=== PATIENT | female | born 1935 | race Caucasian/White ===

== ENCOUNTER 2017-09-24 07:35 | Emergency (ER) | payer OTHER ==
[~2017-09-24] VITALS: Ht 162.6 cm; Wt 61.2 kg
[2017-09-24 08:23] LABS: CARBON DIOXIDE 25.6 mmol/L (21-32); CHLORIDE SERUM 101 mmol/L (98-107); CREATININE SERUM 1.9 mg/dL (0.6-1.0); GLUCOSE SERUM 90 mg/dL (74-106); SODIUM SERUM 134 mmol/L (136-145)
[2017-09-24 08:27] LABS: ALBUMIN 3.5 g/dL (3.4-5.0); ALKALINE PHOSPHATASE 76 U/L (46-116); ALT/SGPT 12 U/L (14-59); AST/SGOT 14 U/L (15-37); BILIRUBIN TOTAL 0.51 mg/dL (0.20-1.00); TOTAL PROTEIN, SERUM 6.8 g/dL (6.4-8.2)
[2017-09-24 08:30] LABS: BASOPHIL % 0.4 % (0-2); PLATELET COUNT 233 x10^3mcL (130-400)
[2017-09-24 08:31] LABS: microscopic required? YES; urine erythrocyte 1+ (NEGATIVE)
[2017-09-24 10:25] VITALS: BP 177/82
== END 2017-09-24 10:20 | disposition home or self-care (01) ==
LOC: ED 07:35
PROVIDERS: Emergency Medicine
DX: N39.0 Urinary tract infection, site not specified (principal); I16.0 Hypertensive urgency; R51 Headache; R53.1 Weakness
CPT/HCPCS: J0696; J3010; J7030; Q0092

== ENCOUNTER 2017-10-09 14:31 | Inpatient (IN) | payer OTHER ==
[~2017-10-09] VITALS: Ht 165.1 cm; Wt 65.3 kg
[2017-10-09 14:40] VITALS: Ht 165.1 cm; Wt 65.3 kg
[2017-10-09 15:54] LABS: UA SPECIFIC GRAVITY <=1.005 (1.005-1.035); microscopic required? YES; urine erythrocyte TRACE (NEGATIVE)
[2017-10-09 16:07] LABS: PLATELET COUNT 204 x10^3mcL (130-400); RED CELL DISTRIBUTION WIDTH 14.1 % (11.5-14.5)
[2017-10-09 16:30] LABS: BAND NEUTROPHIL 2 % (0-10); BASOPHIL 0 % (0-2); MONOCYTE 3 % (0-7); SEGMENTED NEUTROPHILS 90 % (37-75); rbc morphology (normal/abnorm) NORMAL (NORMAL)
[2017-10-09 16:39] LABS: ALBUMIN 3.4 g/dL (3.4-5.0); ALKALINE PHOSPHATASE 82 U/L (46-116); ALT/SGPT 10 U/L (14-59); AST/SGOT 8 U/L (15-37); BILIRUBIN TOTAL 0.6 mg/dL (0.20-1.00); CALCIUM 8.6 mg/dL (8.5-10.1); CHLORIDE SERUM 90 mmol/L (98-107); CREATININE SERUM 1.7 mg/dL (0.6-1.0); GLUCOSE SERUM 115 mg/dL (74-106); POTASSIUM SERUM 4.4 mmol/L (3.5-5.1); TOTAL PROTEIN, SERUM 6.7 g/dL (6.4-8.2)
[2017-10-09 16:40] LABS: SODIUM SERUM 124 mmol/L (136-145)
[2017-10-09 16:55] LABS: CK-MB 0.6 ng/mL (0-3.6)
[2017-10-09] MEDS ORDERED: BUPROPION HCL150 MG PO (16:56)
[2017-10-09] MEDS ORDERED: NITROFURANTOIN100 MG PO (16:56)
[2017-10-09] MEDS ORDERED: LIPI20 PO (16:56)
[2017-10-09] MEDS ORDERED: BUSPIRONE HCL5 MG PO (16:56)
[2017-10-09] MEDS ORDERED: TRA50 PO (16:56)
[2017-10-09] MEDS ORDERED: FUROSEMIDE20 MG PO (16:57)
[2017-10-09] MEDS ORDERED: CITALOPRAM HYDR20 M1 PO (16:57)
[2017-10-09] MEDS ORDERED: GOOD SENSE OMEP20 MG PO (16:57)
[2017-10-09] MEDS ORDERED: NOR5 PO (16:57)
[2017-10-09] MEDS ORDERED: DICLOFENAC SODI75 MG PO (16:57)
[2017-10-09] MEDS ORDERED: LOSARTAN POTASS50 M1 PO (16:58)
[2017-10-09 17:45] LABS: T3 TOTAL 0.49 ng/mL
[2017-10-09 17:46] LABS: FREE T4 1.15 ng/dL (0.76-1.46); FREE THYROXINE INDEX 2.9 ug/dL (1.4-4.5); T4(THYROXINE) 8.3 ug/dL (4.7-13.3)
[2017-10-09 17:54] VITALS: BP 124/88
[2017-10-09 18:34] LABS: CHOLESTEROL/HDL RATIO 2.7; MAGNESIUM 1.8 mg/dL (1.8-2.4)
[2017-10-09 20:28] VITALS: BP 151/49
[2017-10-09 22:37] LABS: CARBON DIOXIDE 21.1 mmol/L (21-32); CHLORIDE SERUM 93 mmol/L (98-107); CREATININE SERUM 1.7 mg/dL (0.6-1.0); GLUCOSE SERUM 121 mg/dL (74-106); SODIUM SERUM 125 mmol/L (136-145)
[2017-10-09 22:38] LABS: IRON 16 ug/dL (50-170); TOTAL IRON BINDING CAPACITY 220 ug/dL (250-450)
[2017-10-09 22:38] LABS: RED BLOOD CELLS 3.09 M/mm3 (4.10-5.10)
[2017-10-10 05:27] VITALS: BP 117/58
[2017-10-10 07:00] LABS: PLATELET COUNT 158 x10^3mcL (130-400); RED CELL DISTRIBUTION WIDTH 14.5 % (11.5-14.5)
[2017-10-10 07:25] LABS: CARBON DIOXIDE 20.1 mmol/L (21-32); CHLORIDE SERUM 102 mmol/L (98-107); CREATININE SERUM 1.7 mg/dL (0.6-1.0); GLUCOSE SERUM 91 mg/dL (74-106); POTASSIUM SERUM 4.4 mmol/L (3.5-5.1); SODIUM SERUM 133 mmol/L (136-145)
[2017-10-10 09:15] VITALS: BP 116/43
[2017-10-10 10:11] LABS: BAND NEUTROPHIL 11 % (0-10); BASOPHIL 0 % (0-2); MONOCYTE 3 % (0-7); SEGMENTED NEUTROPHILS 74 % (37-75)
[2017-10-10 10:12] LABS: PLATELET MORPHOLOGY PLATELETS NORMAL; rbc morphology (normal/abnorm) NORMAL (NORMAL)
[2017-10-10 13:04] VITALS: BP 156/49
[2017-10-10 17:08] VITALS: BP 154/51
[2017-10-10 20:11] VITALS: BP 150/63
[2017-10-11 05:12] VITALS: BP 171/57
[2017-10-11 05:21] VITALS: BP 177/56
[2017-10-11 06:43] LABS: BASOPHIL % 0.2 % (0-2); PLATELET COUNT 168 x10^3mcL (130-400)
[2017-10-11 06:47] LABS: RED CELL DISTRIBUTION WIDTH 14.6 % (11.5-14.5)
[2017-10-11 06:59] LABS: CALCIUM 8.2 mg/dL (8.5-10.1); CARBON DIOXIDE 19.5 mmol/L (21-32); CHLORIDE SERUM 103 mmol/L (98-107); CREATININE SERUM 1.7 mg/dL (0.6-1.0); GLUCOSE SERUM 89 mg/dL (74-106); MAGNESIUM 1.8 mg/dL (1.8-2.4); PHOSPHOROUS 3.4 mg/dL (2.5-4.9); POTASSIUM SERUM 4.3 mmol/L (3.5-5.1); SODIUM SERUM 135 mmol/L (136-145)
[2017-10-11 08:45] VITALS: BP 170/50
[2017-10-11 13:34] VITALS: BP 165/55
[2017-10-11 17:12] VITALS: BP 163/54
[2017-10-11 19:20] VITALS: BP 168/57
[2017-10-12 00:14] VITALS: BP 144/52
[2017-10-12 06:24] VITALS: BP 172/61
[2017-10-12 06:57] LABS: BASOPHIL % 0.3 % (0-2); PLATELET COUNT 221 x10^3mcL (130-400); RED CELL DISTRIBUTION WIDTH 14.4 % (11.5-14.5)
[2017-10-12 07:04] LABS: CALCIUM 8.5 mg/dL (8.5-10.1); CARBON DIOXIDE 19.7 mmol/L (21-32); CHLORIDE SERUM 104 mmol/L (98-107); CREATININE SERUM 1.6 mg/dL (0.6-1.0); GLUCOSE SERUM 107 mg/dL (74-106); POTASSIUM SERUM 4.5 mmol/L (3.5-5.1); SODIUM SERUM 137 mmol/L (136-145)
[2017-10-12 09:27] VITALS: BP 151/54
[2017-10-12 12:47] VITALS: BP 136/49
[2017-10-12 17:16] VITALS: BP 157/60
[2017-10-12 20:56] VITALS: BP 156/63
[2017-10-13 05:41] VITALS: BP 155/68
[2017-10-13 06:47] LABS: BASOPHIL % 1.2 % (0-2); PLATELET COUNT 225 x10^3mcL (130-400); RED CELL DISTRIBUTION WIDTH 14.4 % (11.5-14.5)
[2017-10-13 07:02] LABS: CALCIUM 8.3 mg/dL (8.5-10.1); CHLORIDE SERUM 102 mmol/L (98-107); CREATININE SERUM 1.4 mg/dL (0.6-1.0); GLUCOSE SERUM 94 mg/dL (74-106); POTASSIUM SERUM 4.9 mmol/L (3.5-5.1); SODIUM SERUM 131 mmol/L (136-145)
[2017-10-13 07:43] VITALS: BP 158/61
[2017-10-13] MEDS ORDERED: COZ50 PO (09:33)
[2017-10-13] MEDS ORDERED: NOR5 PO (09:33)
[2017-10-13] MEDS ORDERED: KEFLEX500 M1 PO (09:35)
[2017-10-13 10:23] VITALS: BP 158/61
[2017-10-13 10:46] VITALS: BP 150/77
== END 2017-10-13 11:20 | disposition home or self-care (01) | DRG 871 ==
LOC: ED 14:31 → MU 16:48 → DU 16:48 → MU 17:35 → DU 18:48
PROVIDERS: Emergency Medicine; Family Medicine; Internal Medicine
DX: A41.9 Sepsis, unspecified organism (principal); N17.0 Acute kidney failure with tubular necrosis; N39.0 Urinary tract infection, site not specified; E87.1 Hypo-osmolality and hyponatremia; E87.2 Acidosis; R65.20 Severe sepsis without septic shock; R33.9 Retention of urine, unspecified; R32 Unspecified urinary incontinence; I10 Essential (primary) hypertension; D63.8 Anemia in other chronic diseases classified elsewhere; E03.9 Hypothyroidism, unspecified; E78.5 Hyperlipidemia, unspecified; Z96.652 Presence of left artificial knee joint; Z68.28 Body mass index [BMI] 28.0-28.9, adult; Z91.14 Patient's other noncompliance with medication regimen
CPT/HCPCS: 82962; 83880; 84439; 97110-GP; 97116-GP; 97530-GP; J0696; J7030; Q0092

== ENCOUNTER 2018-05-23 20:31 | Inpatient (IN) | payer OTHER ==
[~2018-05-23] VITALS: Ht 157.5 cm; Wt 92.6 kg
[~2018-05-23 20:31] MED LIST: BUPROPION HCL150 MG PO; BUSPIRONE HCL5 MG PO; CITALOPRAM HYDR20 M1 PO; COZ50 PO; DICLOFENAC SODI75 MG PO; FUROSEMIDE20 MG PO; GOOD SENSE OMEP20 MG PO; KEFLEX500 M1 PO; LIPI20 PO; LOSARTAN POTASS50 M1 PO; NITROFURANTOIN100 MG PO; NOR5 PO; TRA50 PO
--- NOTE | 2018-05-23 20:40 | NUR ---
PT. BIB AMBULACE FOR SOB SINCE TODAY. PER [facility], PT. WAS RECENTLY IN REHAB FACILITY FOR PR AND PNEUMONIA FOR APRX 1MONTH AND D/C ONE WEEK AGO. ON ARRIVAL [facility] REPROTS OXYGEN SAT AT 86% ON 2L AND PT. WAS WHEEZING. WAS GIVEN TWO BREATHING TREATMENTS IN TRANSPORT. PT. AWAKE AND ALERT. IN MODERATE DYSTRESS WITH TACYPNEA AND DYSPNEA. OXYGEN SAT AT 90% ON 2L OXYGEN. DR. MOORE AT BEDSIDE FOR MSE.
--- NOTE | 2018-05-23 20:50 | NUR ---
RT AND LAB AT BEDSIDE.
--- NOTE | 2018-05-23 21:00 | NUR ---
RT AT BEDSIDE.
[2018-05-23 21:01] LABS: BASOPHIL % 0.7 % (0-2); PLATELET COUNT 247 x10^3mcL (130-400)
[2018-05-23 21:02] LABS: RED CELL DISTRIBUTION WIDTH 19.8 % (11.5-14.5)
[2018-05-23 21:23] LABS: CALCIUM 8.6 mg/dL (8.5-10.1); CARBON DIOXIDE 25.7 mmol/L (21-32); CHLORIDE SERUM 103 mmol/L (98-107); CREATININE SERUM 1.8 mg/dL (0.6-1.0); GLUCOSE SERUM 114 mg/dL (74-106); POTASSIUM SERUM 3.4 mmol/L (3.5-5.1); SODIUM SERUM 138 mmol/L (136-145)
[2018-05-23 21:24] LABS: FREE T4 1.8 ng/dL (0.76-1.46); FREE THYROXINE INDEX 4.9 ug/dL (1.4-4.5); T4(THYROXINE) 12.9 ug/dL (4.7-13.3)
[2018-05-23 21:27] LABS: T3 TOTAL 0.83 ng/mL
[2018-05-23 21:37] LABS: ALBUMIN 3.4 g/dL (3.4-5.0); ALKALINE PHOSPHATASE 89 U/L (46-116); ALT/SGPT 17 U/L (14-59); AST/SGOT 17 U/L (15-37); BILIRUBIN TOTAL 0.72 mg/dL (0.20-1.00); C REACTIVE PROTEIN 3.7 mg/dL (<=0.9); TOTAL PROTEIN, SERUM 7.1 g/dL (6.4-8.2)
[2018-05-23 21:41] LABS: ERYTHROCYTE SED RATE 33 mm/hr (0-30)
[2018-05-23 21:43] LABS: CK-MB 1.3 ng/mL (0-3.6)
--- NOTE | 2018-05-23 21:45 | NUR ---
DR. MOORE AT BEDSIDE TO DISCUSS RESULTS AND PLAN OF CARE WITH PATIENT AND FAMILY.
--- NOTE | 2018-05-23 22:00 | NUR ---
PT TOLERATNIG BIPAP WELL. REPORTS SHE IS FEELING BETTER THAN WHEN SHE FIRST ARRIVED TO ED. BREATHING EQUAL AND ULABORED. PT. RESTING ON GURNEY, NOT IN ANY APPARENT DISTRESS. CALL LIGHT IN REACH. FAMILY AT BEDSIDE. WILL CONTINUE TO MONITOR.
--- NOTE | 2018-05-23 22:15 | NUR ---
PT. PLACED ON BPAP AT 12/6 BACKUP AT 12 AND ON 100%. PT. TOLERATNIG WELL.
[2018-05-23 22:20] LABS: MAGNESIUM 1.8 mg/dL (1.8-2.4); PHOSPHOROUS 2.9 mg/dL (2.5-4.9)
[2018-05-23 22:28] LABS: CHOLESTEROL/HDL RATIO 2.7
[2018-05-23] MEDS ORDERED: FLO4 (22:59)
[2018-05-23] MEDS ORDERED: PANTOPRAZOLE SO40 M1 (23:00)
[2018-05-23] MEDS ORDERED: CARAFATE1 GM/10 ML (23:00)
[2018-05-23] MEDS ORDERED: TOPROL XL25 MG (23:01)
[2018-05-23] MEDS ORDERED: PLA75 (23:02)
[2018-05-23] MEDS ORDERED: LEVOTHYROXIN0.125 M2 (23:02)
[2018-05-23 23:09] LABS: UA SPECIFIC GRAVITY 1.015 (1.005-1.035); microscopic required? YES; urine erythrocyte TRACE (NEGATIVE)
[2018-05-23 23:15] LABS: AMPHETAMINE QUAL UR NONE DETECTED (See below)
--- NOTE | 2018-05-23 23:25 | NUR ---
DR. MEJIA AT BEDSIDE TO DISCUSS PLAN OF WITH PATIENT AND DAUGHTER.
--- NOTE | 2018-05-24 00:08 | NUR ---
REPORT GIVEN TO JOHNNY BURT FOR FURTHER CARE OF PATIENT. ALL QUESTIONS AND CONCERS ADDRESSED. ALSO INFORMED RT OF TRANSFER
--- NOTE | 2018-05-24 01:00 | NUR ---
PT ARRIVED FROM ED ACCOMPANIED BY NURSE AND RT. PT CC IS SOB. PT ARRIVED WITH BIPAP IN PLACE RATE OF 12 I/E OF 6 AND FIO2 OF 70%. PT TOLERATED WELL. WHILE ADJUSTING IN BED, BIPAP REMOVED AND PT O2 SAT 95% ON ROOM AIR. PT PLACED ON 3L O2 NC AND MONITORED; PT TOLERATED NC WELL WITH O2 SAT AT 97%. PT DENIES SOB. PT IS AWAKE AND ORIENDTED X4 PRIMARILY MAORI SPEAKING BUT ABLE TO LET NEEDS BE KNOWN. PT DENIES CP OR PRESSURE. PT REMAINS INCONTINENT OF BLADDER. PT NOTED TO HAVE +4 EDMEA TO BILAT FEET. PT REMAINS CALM AND COOPERATIVE AT THIS TIME. PT DENIES PAIN OR DISCOMFORT. NO SIGNS OF DISTRESS. WILL CONTINUE TO MONITOR.
--- NOTE | 2018-05-24 01:05 | NUR ---
PT TRANSFERED TO ICU AT THIS TIME ON BIPAP. PT ACCOMPANIED BY ME RN, EMT CYNTHIA, AND RT GIO. PT TRANSFERED VIA GURNEY. PT IS AWAKE AND ALERT, NAD AT THIS TIME. BREATHING EVEN AND UNLABORED. PT ACCOMPANIED BY FAMILY MEMBER WHO VERBALIZED UNDERSTANDING OF PLAN OF CARE. CARMEL STAFFORD IN ICU TO ASSUME FURTHER CARE OF PT.
[2018-05-24 01:12] VITALS: BP 161/82
--- NOTE | 2018-05-24 02:00 | NUR ---
PT BP ELEVATED AT THIS TIME. 178/[address] MEJIA NOTIFIED. WILL CONTINUE TO MONITOR.
--- NOTE | 2018-05-24 02:38 | NUR ---
APRESOLINE 10MG IVP ORDERED, AWAITING VERIFICATION. WILL CARRY OUT ORDERS.
[2018-05-24 02:40] VITALS: BP 161/82
--- NOTE | 2018-05-24 02:56 | NUR ---
IV APRESOLINE GIVEN ORDERED. PT DENIES PAIN OR DISCOMFORT. WILL CONTINUE TO MONTIOR.
--- NOTE | 2018-05-24 03:42 | NUR ---
PT HR ELEVATED TO 160'S, DR. MEJIA MADE AWARE AND AT BEDSIDE TO SEE PT. PT APPEARS TO BE ANXIOUS, AND FRANTIC WITH BIPAP ON. ONE TIME DOSE OF ATIVAN 1MG IVP ORDERED.
--- NOTE | 2018-05-24 04:00 | NUR ---
PT HR IN 140'S DR. MEJIA ORDERED LOPRESSOR 5MG IVP. MED GIVEN AND HR AT THIS TIME DROPPED TO THE 80'S. PT REMAINS IN BED AT THIS TIME RESTING AND CALM. NO SIGNS OF DISTRESS. WILL CONTINUE TO MONITOR.
--- NOTE | 2018-05-24 05:09 | NUR ---
PT REMAINS IN BED AT THIS TIME RESTING AND CALM. PT REMAINS ON BIPAP AT THIS TIME RATE OF 12 AND FIO2 OF 30%. PT BP 121/56 WITH HR 82 O2 SAT 97% RR 24. NO SIGNS OF PAIN OR DISCOMFORT. NO SIGNS OF DISTRESS. [facility].
[2018-05-24 05:25] LABS: PLATELET COUNT 193 x10^3mcL (130-400)
[2018-05-24 05:30] LABS: BASOPHIL % 0 % (0-2); RED CELL DISTRIBUTION WIDTH 19.8 % (11.5-14.5)
[2018-05-24 05:39] LABS: CALCIUM 8.4 mg/dL (8.5-10.1); CARBON DIOXIDE 21.6 mmol/L (21-32); CHLORIDE SERUM 104 mmol/L (98-107); CREATININE SERUM 1.9 mg/dL (0.6-1.0); GLUCOSE SERUM 207 mg/dL (74-106); MAGNESIUM 1.6 mg/dL (1.8-2.4); PHOSPHOROUS 3.7 mg/dL (2.5-4.9); POTASSIUM SERUM 3.4 mmol/L (3.5-5.1); SODIUM SERUM 141 mmol/L (136-145)
[2018-05-24 05:59] VITALS: BP 136/63
--- NOTE | 2018-05-24 06:06 | NUR ---
PT MG 1.6, K 3.4, AND TROP 0.126; DR. MEJIA AND DR. MATHUR MADE AWARE.
--- NOTE | 2018-05-24 06:43 | NUR ---
PT REMAINS IN BED AT THIS TIME WITH BIPAP IN PLACE RATE OF 12 AND FIO2 OF 30% AT THIS TIME. PT TOLERATING WELL. PT DROWSY BUT AROUSABLE AT THIS TIME. NO SIGNS OF SOB. RESPIRATIONS EVEN AND UNLABORED. NO SIGNS OF CP OR PRESSURE. PT REMAINS INCONTINENT DURING THE SHIFT. PT REPOSITIONED Q2 HOURS WHILE ASLEEP. ALL PT NEEDS MET. NO SIGNS OF DISTRESS. WILL ENDORSE TO DAY NURSE.
--- NOTE | 2018-05-24 07:15 | NUR ---
REPORT GIVEN BY CARMEL TURNER. ALL QUESTIONS ANSWERED.
[2018-05-24 07:20] VITALS: BP 145/66
--- NOTE | 2018-05-24 07:30 | NUR ---
PATIENT IS IN BED SLEEPING, BED IS TO THE LOWEST POSITION. PATIENT IS ON BIPAP. RATE OF 12 AND FI02 OF 30%. PATIENT IS BREATHING ADEQUATELY AND THERE ARE NO SIGNS OF RESPIRATORY DISTRESS. SAFEMAKER IN PLACE, NSR. ABD IS ROUND AND SOFT. NO BM PER BIOSTATISTICS DIRECTOR. R HAND IV IS INTACT WITH NS INFUSING AT 10 ML/HR. PATIENT IS CALM AND COOPERATIVE AND ABLE TO FOLLOW SIMPLE COMMANDS. PRESSURE POINTS ARE OFF LOADED WITH PILLOWS. CALL LIGHT WITHIN REACH. WILL CONTINUE TO MONITOR.
[2018-05-24 08:50] VITALS: Ht 157.5 cm; Wt 92.6 kg
--- NOTE | 2018-05-24 10:04 | NUR ---
DR. MAGANA, RESIDENTS, BUILDING ENERGY RETROFIT TECHNICIAN AND PRIMARY RN AT BEDSIDE FOR MORNING ROUNDS. PLAN OF CARE DISCUSSED. WILL CONT TO MONITOR.
--- NOTE | 2018-05-24 11:29 | NUR ---
PER ECHO CARDIOGRAM TECH, EJECTION FRACTION OF PT 45% AND RSVP: 58. TECH WILL CALL DR. VENEGAS.
[2018-05-24 11:45] VITALS: BP 150/60
--- NOTE | 2018-05-24 12:11 | NUR ---
RESENDEZ CATHETER APPLIED,PER DR STEIN. PATIENT STABLE, WILL CONTINUE TO MONITOR.
--- NOTE | 2018-05-24 14:02 | NUR ---
DR. SCHMIDT IS AT BEDSIDE DISCUSSING PLAN OF CARE WITH DAUGHTER. DR. SCHMIDT RECCOMMENDS CARDIAC DIET AND [address] SCHMIDT ALSO STATES THAT PATIENT IS STABLE TO GO UPSTAIRS. PATIENT STABLE, WILL CONTINUE TO MONITOR.
--- NOTE | 2018-05-24 15:15 | NUR ---
REPORT GIVEN TO CARMEL BROWNING, FOR TRANSFER. ALL QUESTIONS AND CONCERNS ADDRESSED.
--- NOTE | 2018-05-24 16:00 | NUR ---
RECIEVED PT FROM ICU. PT IS LAYING DOWN AND LOOKS TO BE IN NO ACUTE DISTRESS AT THIS TIME. VITAL SIGNS, BP: 148/65, HR: 95, RR: 20, 02: 94%, TEMP: 97.2, PT DENIES ANY PAIN AT THIS TIME. 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 TELE MONITOR 6 SHOWS NSR. BOWEL SOUNDS ACTIVE X4 QUADRANTS. RADIAL PULSES MODERATE, PEDAL PULSES WEAK. TRACE SWELLING TO RIGHT LOWER EXTREMITY, +2 PITTING EDEMA TO LEFT LOWER EXTREMITY. PT ON AIR MATTRESS. SKIN TEAR TO RIGHT BUTTOCKS, PICTURE IN CHART, OPTIFOAM PRESENT. IV SITE TO LEFT HAND LOOKS PATENT WITH NO SIGNS OF ERYTHEMA OR SWELLING, IV FLUIDS INFUSING. FAMILY MEMBER AT BEDSIDE. ORIENTED PT TO ROOM, BED IN LOWEST POSITION. CALL LIGHT WITHIN REACH. WILL CONTINUE TO MONTIOR.
--- NOTE | 2018-05-24 18:37 | NUR ---
PT LAYING DOWN IN BED WITH HOB UP. RESPIRATIONS EVEN AND UNLABORED ON 3L OXYMIZER. PT LOOKS TO BE IN NO ACUTE DISTRESS AT THIS TIME AND DENIES ANY PAIN. IV SITE IS PATENT WITH NO SIGNS OF ERYTHEMA OR SWELLING, IV FLUIDS INFUSING. RESENDEZ CATHETER EMPTYING CLEAR YELLOW URINE. RESENDEZ CARE COMPLETED. FAMILY MEMBER AT BEDSIDE. BED IN LOWEST POSITION. CALL LIGHT WITHIN REACH. WILL CONTINUE TO MONITOR.
--- NOTE | 2018-05-24 19:14 | NUR ---
RECEIVED PT FROM DAY SHIFT RN. AAO. DENIES HEADACHE/DIZZINESS. PT ON 3L OXYMIZER, DENIES SOB. TOLD PT AND FAMILY AT BEDSIDE TO CALL RN IF FEELING SOB, PT VERBALIZED UNDERSTANDING. DENIES CP/CHEST PRESSURE. TELE #6 SHOWING NSR, HR 85. DENIES N/V, DENIES ABD PAIN. IV TO L HAND CDI, NO SIGNS OF ERYTHEMA OR SWELLING, IVF INFUSING WELL. CALL LIGHT WITHIN REACH. WILL CONTINUE TO MONITOR.
[2018-05-24 20:04] VITALS: BP 142/63
--- NOTE | 2018-05-25 00:14 | NUR ---
PT REQUESTING SLEEPING MED, DR. JUAN ARCINIEGA.
--- NOTE | 2018-05-25 00:52 | NUR ---
RT CALLED, PT C/O DRY NARES, PER RT, WILL PLACE PT ON NC WITH HUMIDIFIER TO REDUCE IRRITATION.
--- NOTE | 2018-05-25 01:46 | NUR ---
PT RESTING IN BED WITH EYES CLOSED. BREATHING E/U ON 5L OXYGEN NC. NO SIGNS OF PAIN NOTED. WILL CONTINUE TO MONITOR.
[2018-05-25 05:10] VITALS: BP 132/68
--- NOTE | 2018-05-25 06:29 | NUR ---
PT HAD RESTFUL NIGHT. REMAINS ON 5L OXYGEN NC. NO S/S ACUTE DISTRESS. DENIES PAIN. TOLERATED MEDICATION ADMINISTRATION WELL. NO CHANGES OVERNIGHT. ALL NEEDS MET AND ATTENDED TO. CALL LIGHT WITHIN REACH. WILL ENDORSE CARE TO ONCOMING SHIFT NURSE.
[2018-05-25 06:30] LABS: CALCIUM 8.7 mg/dL (8.5-10.1); CARBON DIOXIDE 24.4 mmol/L (21-32); CHLORIDE SERUM 104 mmol/L (98-107); CREATININE SERUM 2.1 mg/dL (0.6-1.0); GLUCOSE SERUM 159 mg/dL (74-106); MAGNESIUM 2.1 mg/dL (1.8-2.4); POTASSIUM SERUM 4.6 mmol/L (3.5-5.1); SODIUM SERUM 139 mmol/L (136-145)
[2018-05-25 07:01] LABS: PLATELET COUNT 196 x10^3mcL (130-400)
[2018-05-25 07:03] LABS: BASOPHIL % 0 % (0-2); RED CELL DISTRIBUTION WIDTH 19.4 % (11.5-14.5)
--- NOTE | 2018-05-25 07:15 | NUR ---
RECIEVED PT FROM NIGHT NURSE. PT IS LAYING DOWN IN BED RESTING WITH EYES CLOSED. PT LOOKS TO BE IN NO ACUTE DISTRESS AT THIS TIME. RESPRIATIONS EVEN AND UNLABORED ON 5L NC WITH HUMIDIFIER. TELE MONITOR 6 SHOWING NORMAL SINUS RHYTHM. IV SITE LOOKS PATENT WITH NO SIGNS OF ERYTHEMA OR SWELLING. BED IN LOWEST POSITION, CALL LIGHT WITHIN REACH. WILL CONTINUE TO MONITOR.
[2018-05-25 07:52] VITALS: BP 149/76
[2018-05-25 12:08] VITALS: BP 147/70
--- NOTE | 2018-05-25 13:00 | NUR ---
PT LAYING DOWN IN BED WITH HOB UP. PT LOOKS TO BE IN NO ACUTE DISTRESS AT THIS TIME AND DENIES ANY PAIN. REPSIRATIONS EVEN AND UNLABORED ON 5L NC WITH HUMIDIFIER. FAMILY MEMBER AT BEDSIDE. IV SITE IS PATENT WITH NO SIGNS OF ERYTHEMA OR SWELLING. BED IN LOWEST POSITION. CALL LIGHT WITHIN REACH. WILL CONTINUE TO MONITOR.
--- NOTE | 2018-05-25 14:00 | NUR ---
PT IS COMPLAINING OF DRY EYES. WILL MEDICATE ACCORDING TO EMAR.
[2018-05-25 15:54] VITALS: BP 134/75
--- NOTE | 2018-05-25 17:30 | NUR ---
PT IS LAYING DOWN IN BED WITH HOB UP. RESPIRATIONS EVEN AND UNLABORED ON 5L NC WITH HUMIDIFICATION. PT LOOKS TO BE IN NO ACUTE DISTRESS AT THIS TIME AND DENIES ANY PAIN. FAMILY MEMBER AT BEDSIDE. RESENDEZ CARE PREFORMED. BED IN LOWEST POSITION. CALL LIGHT WITHIN REACH. WILL ENDORSE TO ONCOMING SHIFT.
--- NOTE | 2018-05-25 19:55 | NUR ---
AOX3. TELE #6, SR. LUNGS CLEAR ON NC @ 4L, DENIES SOB. PULSES PALPABLE. EDMEA TO RLE AND LEFT FOOT. BOWEL SOUNDS ACTIVE. RESENDEZ CATHETER DRAINING YELLOW URINE. ON AIR MATTRESS. DRESSING TO BUTTOCKS, CDI. DENIES PAIN. IV TO LH, PATENT AND INFUSING. BED IN LOWEST POSITION, 2 SIDE RAILS UP, CALL LIGHT IN REACH. INSTRUCTED TO CALL FOR ASSISTANCE.
[2018-05-25 20:33] VITALS: BP 121/47
--- NOTE | 2018-05-26 02:27 | NUR ---
RESTING IN BED WITH EYES CLOSED. BREATHING EVEN AND UNLABORED. NO ACUTE DISTRESS NOTED. WILL CONTINUE TO MONITOR.
[2018-05-26 05:00] VITALS: BP 126/54
--- NOTE | 2018-05-26 07:05 | NUR ---
NO ACUTE DISTRESS NOTED. ENDORSED TO FELICIA BURT.
[2018-05-26 07:17] LABS: PLATELET COUNT 192 x10^3mcL (130-400)
[2018-05-26 07:18] LABS: RED CELL DISTRIBUTION WIDTH 19.1 % (11.5-14.5)
[2018-05-26 07:30] LABS: CALCIUM 8.4 mg/dL (8.5-10.1); CARBON DIOXIDE 25.2 mmol/L (21-32); CHLORIDE SERUM 104 mmol/L (98-107); CREATININE SERUM 2.6 mg/dL (0.6-1.0); GLUCOSE SERUM 141 mg/dL (74-106); POTASSIUM SERUM 4.7 mmol/L (3.5-5.1); SODIUM SERUM 139 mmol/L (136-145)
--- NOTE | 2018-05-26 10:24 | NUR ---
AT 0710 - RECEIVED PATIENT FROM NIGHT NURSE. SLEEPING. RESPIRATIONS REGULAR. MONITOR SHOWING SINUS RHYHTM WITH PAC'S; RATE 70'S. IV INFUSING NS AT 10 ML/HR. RESENDEZ CATHETER DRAINING PALE YELLOW URINE. AT 0745 - RECEIVED CALL FROM LAB WITH BUN 64. CR 2.6 COPY OF LAB REPORT WITH HIGHLIGHTED RESULTS GIVNE TO DR GRANADOS IN CONFERENCE. AT 0810 - PATIENT AWAKE, ALERT AND APPEARS ORIENTED. DAUGHTER NOW AT BEDSIDE. PATIENT REPOSITIONED . SAT UP IN BED FOR BREAKFAST. PATIENT C/O GENERALZIED ITCHINESS AND SOME FACIAL REDDNESS. AT 0900 - HAS EATEN BREAKFAST. AT 0910 - RELEASE OF INFORMATION FORM SIGNED BY PATIENT FOR REQUEST OF RECORDS FROM [facility] AND [facility]. PATIENT RESTING QUIETLY. DAUGHTER AT BEDSIDE.
[2018-05-26 10:32] VITALS: BP 146/63
--- NOTE | 2018-05-26 11:18 | NUR ---
C/O ITCHY EYES. FAMILY REQUESTING EYE DROPS. INSTILLED ARTIFICIAL TEARS OU PER EMAR.
--- NOTE | 2018-05-26 12:31 | NUR ---
PATIENT HAS AMBULATED WITH PHYSICAL THERAPY. HAD BM IN BATHROOM. NOW SITTING ON SIDE OF BED FOR LUNCH. DAUGHTER AT BEDSIDE AND INVLOVED WITH CARE.
[2018-05-26 13:58] VITALS: BP 124/49
[2018-05-26 14:05] LABS: BAND NEUTROPHIL 0 % (0-10); BASOPHIL 0 % (0-2); MONOCYTE 2 % (0-7); SEGMENTED NEUTROPHILS 98 % (37-75)
[2018-05-26 14:06] LABS: PLATELET MORPHOLOGY PLATELETS DECREASED; burr cell (echinocyte) 1+; ovalocyte/elliptocyte 1+; rbc morphology (normal/abnorm) ABNORMAL (NORMAL)
--- NOTE | 2018-05-26 14:42 | NUR ---
AT 1410 - SEEN BY DR SCHMIDT. SPOKE WITH DAUGHTERS. THEY WOULD LIKE TO CONSIDER HOSPICE FOR PATIENT. FAMILY MENTIONED TO DR ABOUT PATIENT'S FACIAL REDDNESS EARLIER TODAY. WOULD LIKE STAFF TO OBSERVE PATIENT FOR POSSIBLE DRUG REACTION. AKOSUA KIMBROUGH IN PROGRESS AT THIS TIME. AT 1420 SPOKE WITH LEIGHANN FROM CASE MANAGEMENT. SHE WILL COME TO SEE FAMILY .
--- NOTE | 2018-05-26 15:10 | NUR ---
PHYSICAL THERAPY DAILY NOTES CO-SIGN All documentation done by the Layout Inspector for 05/26/18 has been reviewed. I agree with the documentation. Reviewed/Co-Signed by: Laisha Dominguez PT Documentation Done by:DANIEL TORRES [facility]
--- NOTE | 2018-05-26 16:58 | NUR ---
PT WAS SEEN FOR DYSPHAGIA. PT WAS ABLE TO SAFELY SWALLOW PUREE DIET WITH THIN LIQUID. PT HAD MILD DIFFICULTY WITH MASTICATION SKILLS FOR MS DIET. RECOMMENDATION PUREE DIET WITH THIN LIQUID.
--- NOTE | 2018-05-26 17:51 | NUR ---
PATIENT HAS HAD SWALLOW EVAL. SPEECH THERAPIST RECOMMENDS PURREED DIET. REGULAR LIQUIDS. AT THIS TIME, HOSPICE NURSE AT BEDSIDE SPEAKIGN WITH PATIENT'S DAUGHTER.
[2018-05-26 17:56] VITALS: BP 127/47
--- NOTE | 2018-05-26 18:29 | NUR ---
PLAN IS FOR PATIENT TO GO HOME ON HOSPICE, SOMETIME THIS WEEKEND, ONCE ALL THE EQUIPMENT IS SET UP AT HOME. PATIENT IS AWAKE, ALERT. RESTING QUIETLY. VSS. AFEBRILE. IV REMAINS AT 10ML/HR. URINE OUTPUT 800 ML THIS SHIFT. PATIENT HAS POOR APPETTIE BUT IS TAKING PO FLUIDS AND SMALL AMOUNTS OF FOOD. FAMILY REMAINS WITH PATIENT AND IS ATTENTIVE TO HER NEEDS. WILL ENDORSE CARE TO NIGHT NURSE.
--- NOTE | 2018-05-26 19:15 | NUR ---
RECIEVED PATIENT AT START OF SHIFT A/O X4. NO SOB NOTED ON 3L NC AND NO COMPLAINT OF PAIN. LUNGS DIMINISHED BILATERALLY. ON TELE NUMBER 6 NSR. TRACE EDEMA NOTED TO BLE. RESENDEZ DRAINING CLEAR YELLOW URINE. OPTIFOAM NOTED TO BUTTOX. IV PATENT AND INTACT. BED LOCKED AND IN LOWEST POSITION. CALL LIGHT AND BEDSIDE TABLE WITHIN REACH. WILL CONTINUE TO MONITOR.
[2018-05-26 20:58] VITALS: BP 137/57
--- NOTE | 2018-05-26 21:45 | NUR ---
PATIENT REQUESTED TO HAVE BIPAP MACHINE REMOVED BECAUSE SHE SAID IT WAS UNCOMFORTABLE AND SHE DIDNT NEED IT. PATIENT PLACED ON 3L NC INSTEAD. NO SOB NOTED. PATIENT ALSO REQUESTED AMBIEN TO HELP HER SLEEP, ADMINISTERED PER EMAR. REPOSITIONED TO RIGHT SIDE. WILL CONTINUE TO MONITOR.
--- NOTE | 2018-05-27 01:00 | NUR ---
PATIENT'S EYES ARE CLOSED, BREATHS EVEN AND REGULAR. NO DISTRESS NOTED. WILL CONTINUE TO MONITOR.
[2018-05-27 05:44] VITALS: BP 139/70
--- NOTE | 2018-05-27 07:45 | NUR ---
AT 0710 - RECEIVED PATIENT FROM NIGHT NURSE. SLEEPING. RESPIRATIONS REGULAR. MONITOR SHOWING SINUS RHYTHM WITH PAC'S; RATE 70'S. IV AT 10 ML/HR NS. RESENDEZ CATHETER DRAINING PALE YELLOW URINE.
--- NOTE | 2018-05-27 08:06 | NUR ---
PATIENT NOW AWAKE, ALERT AND APPEARS ORIETNED. SAT UP IN BED AND ASSISTED WITH BREAKFAST.
[2018-05-27 09:08] VITALS: BP 139/70
[2018-05-27 09:40] VITALS: BP 138/55
--- NOTE | 2018-05-27 10:28 | NUR ---
AT 0900 - PATIENT USED BEDSIDE COMODE FOR BM. LOOSE STOOL. RETURNED TO BED AND MADE COMFORTABLE. AT 0920 - IV RESITED IN RFA. IV CATHTER FROM R WRIST REMOVED INTACT. DAUGHTER WITH PATIENT AND ATTENTIVE TO CARE.
--- NOTE | 2018-05-27 13:07 | NUR ---
PATIENT HAS BEEN UP/AMBULATED WITH PHYSICAL THERAPY. NOW SITTING UP EATING LUNCH.
[2018-05-27 13:43] VITALS: BP 122/51
--- NOTE | 2018-05-27 16:13 | NUR ---
APPLIED Z-GUARD CREAM TO R BUTTOCK AREA OF REDDNESS - AREA IS APPROX 1 CM IN DIAMETER.
[2018-05-27 17:23] VITALS: BP 122/48
--- NOTE | 2018-05-27 18:22 | NUR ---
PATIENT AWAKE, ALERT AND ORIENTED. VSS. AFEBRILE. RESPIRATIONS REGULAR. O2 VIA NC AT 2L/MIN. PATIENT USING INSENTIVE SPIROMETER WITH ENCOURAGEMENT. EATING A PURREED DIET. APPEARS TO HAVE BETTER APPETITE TODAY. FEEDING SELF THIS EVENING. RESENDEZ CATHETER DRAINING YELLOW URINE. URINE OUTPUT 300 ML THIS SHIFT. IV AT TKO RATE OF 10 ML/HR NS. WILL ENDORSE CARE TO NIGHT NURSE.
--- NOTE | 2018-05-27 19:30 | NUR ---
RECIEVED PATIENT AT START OF SHIFT A/O X4. APPEARS COMFORTABLE ON 2L NC. NO SOB NOTED. LUNGS CLEAR IN UPPER LOBES, DIMINISHED AT THE BASES. BS ACTIVE. ABDOMEN SOFT. NO EDEMA NOTED. IV TO RFA IS INFUSING WITHOUT ERYTHEMA OR INFILTRATION. RESENDEZ DRAINING CLEAR YELLOW URINE. BED LOCKED AND IN LOWEST POSITION. CALL LIGHT AND BEDSIDE TABLE WITHIN REACH. FAMILY AT BEDSIDE. WILL CONTINUE TO MONITOR.
[2018-05-27 21:59] VITALS: BP 126/53
[2018-05-28 05:49] VITALS: BP 137/50
--- NOTE | 2018-05-28 07:15 | NUR ---
NO SIGNIFICANT EVENTS THIS SHIFT. NO COMPLAINTS OF PAIN. IV IS STILL PATENT. SAFETY PRECAUTIONS MAINTAINED. CARE ENDORSED TO FELICIA BURT.
[2018-05-28 09:18] LABS: CALCIUM 8.1 mg/dL (8.5-10.1); CARBON DIOXIDE 25.3 mmol/L (21-32); CHLORIDE SERUM 102 mmol/L (98-107); GLUCOSE SERUM 166 mg/dL (74-106); POTASSIUM SERUM 4.7 mmol/L (3.5-5.1); SODIUM SERUM 137 mmol/L (136-145)
[2018-05-28 09:51] VITALS: BP 134/52
--- NOTE | 2018-05-28 10:06 | NUR ---
AT 0720 - RECEIVED PATIENT FROM NIGHT NURSE. SLEEPING. RESPIRATIONS REGULAR. MONTIOR SHOWING SINUS RHYTHM; RATE 60'S. NO ECTOPIES NOTED. IV AT TKO RATE OF NS AT 10 ML/HR. RESENDEZ CATHETER DRAINING YELLOW URINE. AT 0745 - PATIENT AWAKE, ALERT AND ORIENTED. SAT UP IN BED FOR BREAKFAST. AT 0835 - PATIENT HAS EATEN 30 % OF FOOD ON BREAKFAST TRAY. WAS ABLE TO FEED SELF. LAB AT BEDSIDE FOR LAB DRAW. AT 0850 - PATIENT'S DAUGHTER AT BEDSIDE. REQUESTED TO SPEAK WITH CHARGE NURSE REGARDING HOSPICE. [facility]. AT 0934 - CALL PLACED FOR DR STEIN TO NOTIFY OF BNP RESULTS ORDERED. PATIENT HAS HAD LASIX TODAY. AT 1010 - BOTH DAUGHTERS NOW AT BEDSIDE. PATIENT APPEARS COMFORTABLE AT PRESENT. RESPIRATIONS REGULAR. ON 2L O2 VIA NC.
[2018-05-28 12:12] VITALS: BP 114/48
--- NOTE | 2018-05-28 14:48 | NUR ---
AT 1300 - HOSPICE NURSE FROM [facility] AT BEDSIDE SPEAKING WITH PATIENT'S DAUGHTERS
--- NOTE | 2018-05-28 15:00 | NUR ---
PATIENT ACCEPTED BY [facility]. WHENPATIENT IS READY TO BE DISCHARGED HOME, CALL HOSPICE FOR THEM TO ARRANGE EQUIPMENT TO PATIENT'S HOME AND SET UP TRANSPORT.
--- NOTE | 2018-05-28 15:46 | NUR ---
PATIENT'S DAUGHTER REPORTED THAT PATIENT IS C/O SCALP ITCHINESS. SHE EXPRESSED CONCERN THAT PATIENT IS HAVING AM ALLERTGY. NO RASH OR REDDNESS NOTED ANYWHERE ON BODY, EXCEPT "PUFFINESS" OF LEFT LOWER EYELID. SPOKE WITH RINKU FAM. SHE WILL ORDER BENADRYL FOR PATIENT.
--- NOTE | 2018-05-28 17:30 | NUR ---
GIVEN BENADRYL FOR C/O PERSISTANT ITCHINESS OF SCALP AND SLIGHT FACIAL REDDNESS AND LEFT LOWER EYELID PUFFINESS. PATIENT RESTING QUIETLY. REMAINS AWAKE, ORIENTED. PLEASANT.
[2018-05-28 17:58] VITALS: BP 130/76
--- NOTE | 2018-05-28 18:53 | NUR ---
SEEN BY DR TSEIN. OK TO REMOVE FLUID RESTRICTION. PATIENT RESTING QUIETLY. MONITOR SHOWING SINUS RHYTHM; RATE 60'S. IV REMAINS AT 10 ML/HR. URINE OUTPUT 700 ML THIS SHIFT. WILL ENDORSE CARE TO NIGHT NURSE.
--- NOTE | 2018-05-28 19:30 | NUR ---
RECIEVED PATIENT AT START OF SHIFT A/O X4. DENIES PAIN. APPEARS COMFORTABLE. NO SOB ON 2L NC. LUNGS DIMINISHED AT BASES. ON TELE NUMBER 6, NSR WITH OCCASINAL PAC. NO EDEMA NOTED. BS ACTIVE. RESENDEZ DRAINING CLEAR YELLOW URINE. IV INFUSING TO RFA WITHOUT ERYTHEMA OR IFILTRATION. BED LOCKED AND IN LOWEST POSITION. CALL LIGHT AND BEDSIDE TABLE WITHIN REACH. DAILY WEIGHT 92.6 KG. WILL CONTINUE TO MONITOR.
[2018-05-28 20:57] VITALS: BP 121/48
--- NOTE | 2018-05-28 22:30 | NUR ---
PATIENT'S IV INFILTRATED ON RFA. IV WAS DISCONTINUED AND ARM IS ELEVATED ON PILLOW. NEW 22 G STARTED ON LEFT FOREARM INFUSING FLUID WELL.
[2018-05-29 05:32] VITALS: BP 125/52
--- NOTE | 2018-05-29 05:40 | NUR ---
RESENDEZ CARE PROVIDED. PATIENT HAD LOOSE BM IN BEDSIDE COMMODE. LINENS CHANGED. PICTURE OF HEALED WOUND ON BUTTOX TAKEN. PATIENT RESTING COMFORTABLEY IN BED.
--- NOTE | 2018-05-29 06:39 | NUR ---
NO FURTHER SIGNIFICANT EVENTS. WILL ENDORSE CARE TO MORNING NURSE.
[2018-05-29 06:43] LABS: PLATELET COUNT 198 x10^3mcL (130-400)
[2018-05-29 07:05] LABS: CARBON DIOXIDE 24.4 mmol/L (21-32); CHLORIDE SERUM 101 mmol/L (98-107); CREATININE SERUM 3.1 mg/dL (0.6-1.0); GLUCOSE SERUM 135 mg/dL (74-106); POTASSIUM SERUM 4.6 mmol/L (3.5-5.1); SODIUM SERUM 137 mmol/L (136-145)
[2018-05-29 07:16] LABS: RED CELL DISTRIBUTION WIDTH 18.2 % (11.5-14.5)
--- NOTE | 2018-05-29 07:55 | NUR ---
RECEIVED PT IN BED A/A/OX4 DENIES LO. RESP EVEN AND UNLABORED WITH DIMINISHED BS TO BILAT BASES. ON O2 AT 2L/MIN VIA NC WITH RT PROTOCOL. DENIES ANY SOB/CP/PRESSURE. NO EDEMA NOTED IVF TO LFA. ABD SOFT, NONTENDER WITH ACTIVE BS X4. DENIES ANY N/V AT THIS TIME. RESENDEZ CATH TO GRAVITY WITH YELLOW URINE. GEN WEAKNESS UP WITH PT WITH WALKER. ABLE TO TRANSFER TO [facility]. ON AIRLOSS MATTRESS PT ABLE TO ASSIST WITH REPOSITIONING. HEALED ABRASION TO LT BUTTOCK. MULTIPLE CUT OFF SAW OPERATOR, WITH HYDROGUARD IN PLACE TO CAROL AREA TO PROTECT SKIN. PT HAS LAUREN BENAVIDEZ WITH [facility], PENDING D/C HOME ARRANGEMENTS.
[2018-05-29 08:00] VITALS: BP 131/60
--- NOTE | 2018-05-29 11:00 | NUR ---
PT RESTING COMFORTABLY AT THIS TIME. DENIES ANY DISCOMFORT. SPOKE WITH PT'S DAUGHTER WHO STATED THAT FAMILY HAS CALLED [facility] TO F/U WITH D/C PLANNING/ SINCE THEY WILL BE MAKING ALL ARRANGEMENTS FOR DELIVERY OF EQUIPMENT. MADE AWARE THAT PT HAD BEEN CLEAR FOR D/C AND CM WAS TO WORK WITH HOSPICE TO D/C PT ONCE ALL EQUIPMENT COULD BE DELIVERED AT HOME. CONT TO MONITOR.
[2018-05-29 11:50] LABS: SEGMENTED NEUTROPHILS 91 % (37-75)
[2018-05-29 11:51] LABS: PLATELET MORPHOLOGY PLATELETS INCREASED; rbc morphology (normal/abnorm) ABNORMAL (NORMAL)
[2018-05-29 12:00] VITALS: BP 128/52
--- NOTE | 2018-05-29 14:30 | NUR ---
PT RESTING AT THIS TIME. DENIES ANY DISCOMFORT. CALL LIGHT IN REACH NEEDS ATTENDED TO.
--- NOTE | 2018-05-29 16:45 | NUR ---
CM TO SPEAK WITH PT REGARDING HOSPICE SET UP CONCERNS.
[2018-05-29 17:30] VITALS: BP 128/50
--- NOTE | 2018-05-29 18:30 | NUR ---
FRANCES NURSE AT [facility] MADE AWARE ARRANGEMENTS HAVE BEEN MADE WITH [employer] FOR PIN DRAFTING MACHINE TENDER [phone] AM. CHARGE NURSE AWARE. PT/DAUGHTER AWARE. DAUGHTER STATED EQUIPMENT WILL BE DELIVERED AT HOME TONIGHT AT 830PM. PT RESTING COMFORTABLY AT THIS TIME. DENIES ANY PAIN DURING THE SHIFT. CALL LIGHT IN REACH NEEDS ATTENDED TO.
--- NOTE | 2018-05-29 20:00 | NUR ---
RECEIVED PT IN BED. ALERT AND ORIENTED. ABLE TO VERBALIZE NEEDS.DENIES HEADACHE/DIZZINESS. RESP. EVEN AND UNLABORED. 02 AT 2L/MIN VIA NC, SAT. 98% , LUNG SOUNDS DIM. BILAT. DENIES SOB , NO ACUTE DISTRESS NOTED. AFEBRILE AND VITAL SIGNS STABLE. SR ON THE MONITOR, DENIES CHEST PAIN OR PRESSURE. ABD. SOFT, NON TENDER, BS ACTIVE, NO N/V NOTED. RESENDEZ CATH INTACT AND DRAINING YELLOW COLOR URINE. IVF, NS AT 10ML/HR, INTACT AND INFUSING VIA LFA, SITE CLEAR. ABLE TO REPOSITION IN BED WITH ASSIST. HS CARE DONE. CALL LIGHT WITHIN REACH. WILL CONTINUE TO MONITOR.
[2018-05-29 20:32] VITALS: BP 116/63
--- NOTE | 2018-05-30 01:53 | NUR ---
NO COMPLAINTS NOTED AT THIS TIME. EYES CLOSED, APPEARS ASLEEP, EASILY AROUSABLE. RESP. EVEN AND UNLABORED. [address], VILMA. WELL. NO ACUTE DISTRESS NOTED. WILL CONTINUE TO MONITOR. WILL CONTINUE TO MONITOR.
[2018-05-30 05:20] VITALS: BP 115/43
--- NOTE | 2018-05-30 06:13 | NUR ---
SLEPT WELL. NO SIGNIFICANT CHANGE NOTED IN PT,S CONDITION. AFEBRILE AND VITAL SIGNS STABLE. RESP. EVEN AND UNLABORED. ON ROOM AIR, NO ACUTE DISTRESS NOTED. TURNED AND REPOSITIONED Q2HRS AND PRN.RESENDEZ CATH INTACT AND PATENT. DUE MEDS GIVEN ORDERED, VILMA. WELL. IVF INTACT AND INFUSING WELL, SITE CLEAR. KEPT COMFORTABLE AND ALL NEEDS ATTENDED TO. WILL CONTINUE TO MONITOR.
--- NOTE | 2018-05-30 07:15 | NUR ---
RECEIVED PT SLEEPING BUT EASILY AWAKEN. ORIENTED X4. DENIES ANY LO. RESP EVEN AND UNLABORED WITH DIMINISHED BS TO BILAT BASES. DENIES ANY SOB/CP/PRESSURE. NO EDEMA NOTED. IVF TO LFA. ABD SOFT, NONTENDER WITH ACTIVE BS X4. DENIES ANY N/V AT THIS TIME. RESENDEZ CATH TO GRAITY WITH CLEAR YELLOW URINE. ABLE TO ASSIST WITH REPOSITIONING. UP WITH ASSISTANCE TO BSC. PLAN D/C HOME THIS AM WITH [facility]. CALL LIGHT IN REACH NEEDS ATTENDED TO.
[2018-05-30 07:50] LABS: CALCIUM 7.8 mg/dL (8.5-10.1); CARBON DIOXIDE 23.2 mmol/L (21-32); CHLORIDE SERUM 98 mmol/L (98-107); CREATININE SERUM 3.3 mg/dL (0.6-1.0); GLUCOSE SERUM 126 mg/dL (74-106); POTASSIUM SERUM 4.3 mmol/L (3.5-5.1); SODIUM SERUM 136 mmol/L (136-145)
[2018-05-30 08:06] VITALS: BP 119/59
--- NOTE | 2018-05-30 08:39 | NUR ---
PHYSICAL THERAPY DAILY NOTES CO-SIGN All documentation done by the Office Systems Technology Instructor for 05/30/18 has been reviewed. I agree with the documentation. Reviewed/Co-Signed by: Laisha Dominguez PT Documentation Done by:JINA HAQ PRODUCT MANAGER [employer] CO-SIGNED FOR THE DATE 05/29/18
--- NOTE | 2018-05-30 09:00 | NUR ---
MAL CARLSON D/C'D ORDERED. PT TOLERATED WELL CALL LIGHT IN REACH NEEDS ATTENDED TO.
[2018-05-30 09:51] VITALS: BP 116/58
--- NOTE | 2018-05-30 10:00 | NUR ---
PT/DAUGHTER SPOKE WITH SIFTER OPERATOR SANDRA REGARDING CONCERNS AND D/C INSTRUCTIONS AND MEDICATIONS.
--- NOTE | 2018-05-30 10:25 | NUR ---
MADE AWARE BY LABOURERS THAT PT/DAUGHTER HAD DECIDED TO OPT OUT OF HOSPICE AND THEY RATHER GO HOME WITH HH. CM MADE AWARE. [facility] CALL TO CANCEL TRANSPORTATION HOME AT THIS TIME.
[2018-05-30 11:49] VITALS: BP 129/47
--- NOTE | 2018-05-30 15:30 | NUR ---
CM IN TO SPEAK WITH PT/DAUGHTER REGARDING NEW PLANS FOR HH SERVICES.
--- NOTE | 2018-05-30 17:54 | NUR ---
PT RESTING COMFORTABLY AT THIS TIME. DENIES ANY DISCOMFORT. CALL LIGHT IN REACH NEEDS ATTENDED TO.
[2018-05-30 18:28] VITALS: BP 117/79; BP 138/51
--- NOTE | 2018-05-30 18:48 | NUR ---
PT RESTING COMFORTABLY AT THIS TIME. DENIES ANY DISCOMFORT. FAMILY AT BEDSIDE. ASSIST WITH REPOSITIONING. CALL LIGHT IN REACH NEEDS ATTENDED TO.
--- NOTE | 2018-05-30 20:00 | NUR ---
RECEIVED PT IN BED,RESTING QUIETLY. ALERT AND ORIENTED. ABLE TO VERBALIZE NEEDS. DENIES HEADACHE/DIZZINESS. RESP. EVEN AND UNLABORED. ON ROOMAIR AT THIS TIME,SAT 97%. DENIES SOB, NO ACUTE DISTRESS NOTED. SR ON THE MONITOR. DENIES CP OR PRESSURE. IVF, NS AT 10ML/HR, INTACT AND INFUSING VIA LFA. SITE CLEAR. VOIDING FREELY VIA BEDPAN,SOMETIMES INCONT. HS CARE DONE. CALL LIGHT WITHIN REACH. WILL CONTINUE TO MONITOR.
[2018-05-30 22:20] VITALS: BP 141/54
[2018-05-31] VITALS (7 sets, daily range): BP systolic 109–144; BP diastolic 45–63
--- NOTE | 2018-05-31 01:26 | NUR ---
RESTING QUIETLY. APPEARS ASLEEP, EASILY AROUSABLE. NO ACUTE DISTRESS NOTED. CALL LIGHT WITHIN REACH. WILL CONTINUE TO MONITOR.
--- NOTE | 2018-05-31 06:07 | NUR ---
AFEBRILE AND VITAL SIGNS STABLE. RESP. EVEN AND UNLABORED. [address], NO ACUTE DISTRESS NOTED. SLEPT WELL. NO COMPLAINTS NOTED. DUE MEDS GIVEN ORDERED, VILMA. WELL. IVF INTACT AND INFUSING WELL, SITE CLEAR. TURNED AND REPOSITIONED FOR COMFORT. VOIDING FREELY VIA BEDPAN. DENIES PAIN OR ANY DISCOMFORT. ALL NEEDS ATTENDED TO. CALL LIGHT WITHIN REACH. WILL CONTINUE TO MONITOR.
[2018-05-31 07:15] LABS: CARBON DIOXIDE 22.5 mmol/L (21-32); CHLORIDE SERUM 97 mmol/L (98-107); CREATININE SERUM 3.6 mg/dL (0.6-1.0); GLUCOSE SERUM 143 mg/dL (74-106); POTASSIUM SERUM 4.2 mmol/L (3.5-5.1); SODIUM SERUM 135 mmol/L (136-145)
--- NOTE | 2018-05-31 07:20 | NUR ---
RECEIVED PT REPORT FROM LEAVING NURSE. PT IS AA/O X3. PT IS DNR. AIR MATTRESS APPLIED. PT BREATHING ON RA, EVEN, UNLABORED. NO COMPLAIN OF PAIN AT THIS TIME. SALINE LOCK AT THIS TIME.
--- NOTE | 2018-05-31 07:30 | NUR ---
PHYSICAL THERAPY DAILY NOTES CO-SIGN All documentation done by the Bed Setter for 05/31/18 has been reviewed. I agree with the documentation. Reviewed/Co-Signed by: Laisha Dominguez PT Documentation Done by:JINA HAQ MIDDLE SCHOOL SPORTS COACH CO-SIGNED FOR THE DATE 05/30/18
--- NOTE | 2018-05-31 10:36 | NUR ---
REPOSITION PT WITH PILLOW. PT'S DAUGHTER AT BED SIDE. PT BREATHING ON O2 2L VIA NC, EVEN, UNLABORED.
--- NOTE | 2018-05-31 12:07 | NUR ---
PT STATED FEELING COLD, RADOMLY CHECK PT'S GS 143.
--- NOTE | 2018-05-31 12:14 | NUR ---
P.T. NOTES AFTER MULTIPLE ATTEMPTS PATIENT REFUSED TO BE SEEN BY P.T., STATES NOT FEELING WELL TODAY AND WOULD LIKE TO REST, DAUGHTER PRESENT, RN MADE AWARE.
--- NOTE | 2018-05-31 13:44 | NUR ---
1. Continue cardiac puree diet.
--- NOTE | 2018-05-31 13:44 | NUR ---
Initial Nutrition Assessment- 238T/A BHAVESH ORTIZ LR [place] Dx: acute pulmonary edema, bilateral pleural effusion PMHx: COPD, HTN, CKD IV, GERD, Hypothyroid, new onset CHF and recent CA, unspecified psych hx PSHx: Other (hysterctomy) Labs: NA 135L, BG 143H, BUN 120H, CREAT 3.6H Meds: Colace, Lasix, lactinex, Lipitor, zofran Diet: cardiac (puree) PO Intake: (05/31) breakfast 80% Ht: 157.48 cm (62") Wt: 92.6 kg (203#) BMI: 37.3 kg/m2 (morbid obesity) IBW: 110# (50 kg) %IBW: 184 UBW: ask pt. Age: 83/F Food Allergies: NKFA Skin: healed abrasion on LT buttock Kodak: 17 Edema: none GI: last BM: 05/31 Per Progress note (05/30) pt has Acute respiratory failure likely 2/2 ASDHF exacerbation with underlying COPD exacerbation and possible HCAP, Hx new-onset CHF with recent CA Vasomotor nephropathy with CKD stage 4, BUN 36 with Cr 1.8 and 2+ proteinuria. Pt is hospice. RDN visit (05/31): Pt's daughter was by the bedside and she said that pt is currently on puree diet and is eating good however does not feel hungry very often. Problem with: N: no V: no D: no C: no Problems with: Chewing: no Swallowing: no Current appetite: poor Recent wt change: unknown %wt change: unknown Vitamin/Supplement use: no Special diet at home: regular Physical activity: unknown Education: unknown Estimated Nutritional Needs Based on actual body weight 92.6 kg Energy: 0773-4824 kcal/d (20-25 kcal/kg-maintenance) Protein: 50-60 g/d(1.0-1.2 g/kg)(based on IBW)-maintenance and preservation of lean body mass Fluid: 3757-9912 ml/d (1 ml/kcal-fluid balance) or per doctor Nutrition Diagnosis 1. Altered nutrition related lab values related to renal dysfunction as evidenced by BUN 120, Creat 3.6 Intervention 1. Continue cardiac puree diet. Monitor/Evaluate Goal: PO intake at least 75% of estimated needs Monitor: PO intake, Labs, GI function F/U in 3-5 days as moderate risk 06/03-
--- NOTE | 2018-05-31 19:38 | NUR ---
PT'S REPORT GIVEN TO RECEIVING NURSE. PT'S DAUGHTER AT BEDSIDE. PT BREATHING ON O2 2L VIA NC, EVEN, UNLABORED. DENIED PAIN AT THIS TIME. IV SALINE LOCK.
--- NOTE | 2018-05-31 19:58 | NUR ---
RECEIVED AWAKE IN BED, RESPIRATION EVEN AND UNLABORED , WITH DIMINSHED BREATH SOUNDS BILATERAL BASES. SKIN WARM AND DRY TO TOUCH WITH HEALED ABRASION ON BILATERAL BUTTOCKS. ON AIR MATTRESS FOR SKIN MANAGEMENT. ON TELE#6 WITH SR AT 76=89/MIN. DENEIS ANY CHEST PAIN/DISCOMFORT. CALL LIGHT WITHIN REACH.
--- NOTE | 2018-06-01 00:01 | NUR ---
DUE MEDICATIONS GIVEN AND WELL TOLERATED. CONTINUES ON ATB IVPB ORDERED. NO ADVERSE REACTION NOTED. CALL LIGHT WITHIN REACH.
[2018-06-01 05:27] VITALS: BP 136/51
--- NOTE | 2018-06-01 05:45 | NUR ---
INCONTINENT OF BLADDER AND BOWEL FUNCTIONG. GOOD PERICARE RENDERED. ALL DUE MEDICATIONS GIVEN AND TOLERATED. NO S/S OFA SPIRATION NOTED.
[2018-06-01 06:32] LABS: CALCIUM 8.2 mg/dL (8.5-10.1); CARBON DIOXIDE 25.4 mmol/L (21-32); CHLORIDE SERUM 97 mmol/L (98-107); CREATININE SERUM 3.8 mg/dL (0.6-1.0); GLUCOSE SERUM 129 mg/dL (74-106); POTASSIUM SERUM 3.9 mmol/L (3.5-5.1); SODIUM SERUM 134 mmol/L (136-145)
--- NOTE | 2018-06-01 07:05 | NUR ---
RECEIVED REPORT FROM RN OCCUPATIONAL HEALTH NURSE AT THIS TIME. PATIENT RESTING COMFORTABLY IN BED. NO APPARENT DISTRESS OR DISCOMFORT NOTED. BREATHING EVEN AND UNLABORED. NO RESPIRATORY DISTRESS NOTED. 2L NC IN PLACE. PATIENT TOLERATING WELL. PATIENT DENIES CHEST PAIN AT THIS TIME. IV PATENT AND INTACT. ALL QUESTIONS AND CONCERNS ADDRESSED. ALL NEEDS ATTENDED TO. WILL CONTINUE TO MONITOR
--- NOTE | 2018-06-01 07:10 | NUR ---
PHYSICAL THERAPY DAILY NOTES CO-SIGN All documentation done by the Nurses' Aide for 06/01/18 has been reviewed. I agree with the documentation. Reviewed/Co-Signed by: Laisha Dominguez PT Documentation Done by:JINA HAQ CUSTOMS IMPORT SPECIALIST CO-SIGNED FOR THE DATE 05/31/18
--- NOTE | 2018-06-01 09:21 | NUR ---
MORNING MEDICATIONS ADMINISTERED. PATIENT TOLERATED MEDICATIONS WELL. NO ADVERSE EFFECTS NOTED. NO APPARENT DISTRESS OR DISCOMFORT NOTED. FAMILY AT BEDSIDE. ALL NEEDS ATTENDED TO. ALL SAFETY PRECAUTIONS MAINTAINED
[2018-06-01 09:50] VITALS: BP 132/57
--- NOTE | 2018-06-01 09:56 | NUR ---
NOTIFIED PRINTING TABLE WORKER MATTHIAS ABOUT TELE STRIP SHOWING PAUSES AT THIS TIME. ASSESSED PATIENT. PATIENT DENIES CHEST PAIN OR DISCOMFORT. PER MATTHIAS, DR SIMON IS ON THE CASE. ALSO REPORTED TO MATTHIAS PATIENT REFUSED TO TAKE BUPROPION, HYDRALAZINE, AND COLACE. NO CHANGE IN ORDERS. ALL NEEDS ATTENDED
[2018-06-01 10:41] VITALS: BP 132/57
--- NOTE | 2018-06-01 12:35 | NUR ---
PATIENT AND DAUGHTER UPDATED ABOUT PLAN OF CARE AT THIS TIME. PATIENT CAN BE DISCHARGED WHEN BED IS DELIVERED TO HOUSE WITH HOME HEALTH SET UP. PATIENT AND DAUGHTER VERBALIZE UNDERSTANDING. ALL QUESTIONS AND CONCERNS ADDRESSED. ALL NEEDS ATTENDED TO. WILL CONTINUE TO MONITOR
[2018-06-01 13:25] VITALS: BP 147/60
--- NOTE | 2018-06-01 14:50 | NUR ---
PPoojaT. NOTES AFTER MULTIPLE ATTEMPTS PATIENT REFUSED TO BE SEEN BY P.T., STATES NOT FEELING WELL TODAY, DAUGHTER PRESENT, MADE RN AWARE.
--- NOTE | 2018-06-01 15:54 | NUR ---
IV TO LEFT FOREARM INFILTRATED. NEW IV TO RIGHT FOREARM PLACED. PATIENT TOLERATED WELL. NO APPARENT DISTRESS OR DISCOMFORT NOTED. ALL NEEDS ATTENDED TO. WILL CONTINUE TO MONITOR
[2018-06-01 17:50] VITALS: BP 140/49
--- NOTE | 2018-06-01 17:51 | NUR ---
PATIENT SITTING UP IN BED EATING DINNER AT THIS TIME. FAMILY MEMBER AT BEDSIDE. PATIENT TOLERATING DIET WELL. NO APPARENT DISTRESS OR DISCOMFORT NOTED. ALL NEEDS ATTENDED TO
--- NOTE | 2018-06-01 18:41 | NUR ---
PATIENT RESTING COMFORTABLY IN BED AT THIS TIME. NO APPARENT DISTRESS OR DISCOMFORT NOTED. IV PATENT AND INTACT. ALL QUESTIONS AND CONCERNS ADDRESSED. ALL NEEDS ATTENDED TO. SAFETY PRECAUTIONS MAINTAINED. WILL ENDORSE ALL CARE TO BRUSH TRIMMING MACHINE SETTER NURSE
--- NOTE | 2018-06-01 19:20 | NUR ---
RECEIVED AWAKE IN BED , HOB ELEVATED AT 45 DEGREES, ALERT AND ORIENTED . ABLE TO MAKE NEEDS KNOWN IN GREEK ONLY. RESPIRATION EVEN AND UNLABORED, DIMINISHED BREATH SOUNDS BILATERAL BASES. 02 AT 2L/NC SATURATING AT 98%. NO S/S OF PAIN/DISCOMFORT. ON TELE #6 SR AT 89=02/MIN. CALL LIGHT WITHION REACH.
[2018-06-01 21:19] VITALS: BP 141/56
--- NOTE | 2018-06-02 00:01 | NUR ---
ALL DUE MEDICATIONS GIVEN AND WELL TOLERATED. PT DENEIS ANY PAIN/DSICOMFORT AT THIS TIME. RESPIRATION EVEN AND UNLABORED. NO S/S OFA CUTE DISTRESS.
[2018-06-02 06:12] VITALS: BP 136/69
--- NOTE | 2018-06-02 06:56 | NUR ---
NO S/S OF PAIN/DISCOMFORT AT THIS TIME. ALL NEEDS ATTENDED.
--- NOTE | 2018-06-02 07:10 | NUR ---
RECEIVED PT FROM RAYMOND RN. PT AA/OX4. FOLLOWS COMPLEX COMMANDS, RESPONDS TO VERBAL STIMULI. FACE SYMMETRICAL. SPEAKS MOSTLY ROMANIAN. SPEECH CLEAR. NO LO. NO DIZZINESS. NO SOB ON 2LNC. NO COUGH AT THIS TIME. NO N/V. NO LO. NO DIZZINESS. RR EVEN/SHALLOW/UNLABORED. DIMINISHED BASES BLL. DEAF LEFT EAR. NSR WITH PACS ON TELE 6, HR 69. NO CHEST PAIN. AIR MATTRESS IN PLACE. ABLE TO REPOSITION INDEPENDENTLY, MILD GENERALIZED WEAKNESS NOTED. SKIN WARM, DRY, INTACT. IV WNL TO RFA, NO REDNESS, NO SWELLING, NO INFILTRATION. PATENT AND FLUSHES WELL. CALM/COOPERATIVE. FALL PREC IN PLACE. INSTRUCTED TO USE CALL LIGHT TO CALL FOR ASSISTANCE PRN. VERBALIZED UNDERSTANDING. BED IN LOW POSITION. CALL LIGHT WITHIN REACH. WILL CONT. TO MONITOR.
--- NOTE | 2018-06-02 07:40 | NUR ---
PHYSICAL THERAPY DAILY NOTES CO-SIGN All documentation done by the Clinical Nurse for 06/02/18 has been reviewed. I agree with the documentation. Reviewed/Co-Signed by: Laisha Dominguez PT Documentation Done by:JINA HAQ SCHOOL TRANSPORTATION DIRECTOR CO-SIGNED FOR 06/01/18
[2018-06-02 09:42] VITALS: BP 144/49
--- NOTE | 2018-06-02 10:18 | NUR ---
PT LAYING IN BED. EASILY AROUSABLE TO VERBAL STIMULI. NO S/S OF ACUTE DISTRESS. NO SOB ON ROOM AIR. NO COMPLAINT OF PAIN. CALM/COOPERATIVE. AA/OX4. LINEN CLEAN/DRY. NO BM AT THIS TIME, NO URINATION. DAUGHTER AT BEDSIDE. BED IN LOW POSITION. CALL LIGHT WITHIN REACH. HOB ELEVATED. WILL CONT. TO MONITOR. FALL PREC IN PLACE. AIR MATTRESS IN PLACE.
--- NOTE | 2018-06-02 12:00 | NUR ---
PT LAYING IN BED. AA/OX4. NO S/S OF ACUTE DISTRESS. 97% ON 2LNC. NO SOB. PT INCONTINENT URINE X1. PERICARE PROVIDED. LINEN CHANGED. NO COMPLAINT OF PAIN. CALM/COOPERATIVE. NO CHEST PAIN. BED IN LOW POSITION. CALL LIGHT WITHIN REACH. WILL CONT. TO MONITOR.
[2018-06-02 12:33] VITALS: BP 144/49
--- NOTE | 2018-06-02 14:12 | NUR ---
TITRATED PT TO RA SPO2:98%. PT DENIES SOB. NO RESP DISTRESS NOTED. FAMILY AT BEDSIDE. WILL CONT.TO MONITOR
--- NOTE | 2018-06-02 14:20 | NUR ---
SR WITH 1 SECOND PAUSES ON TELE, DISTRICT GAUGER MATTHIAS AWARE. NO S/S OF ACUTE DISTRESS. NO COMPLAINT OF CHEST PAIN. AA/OX4. NO SOB ON 2LNC. NO FURTHER ORDERS AT THIS TIME. DISCHARGE TO CONTINUE PER DISTRICT GAUGER ORDER. WILL CONT. TO MONITOR.
[2018-06-02 14:59] VITALS: BP 153/62
--- NOTE | 2018-06-02 15:12 | NUR ---
PHYSICAL THERAPY NOTE ATTEMPTED FOR SCHEDULED PHYSICAL THERAPY TREATMENT SESSION. PATIENT DECLINED DUE TO BEING DISCHARGED IN 30 MINUTES.
[2018-06-02 16:26] VITALS: BP 135/55
--- NOTE | 2018-06-02 18:01 | NUR ---
PT BEING DISCHARGED TO HOME, BEING TRANSPORTED BY [facility]. TAKEN BY MEGAN. NO S/S OF ACUTE DISTRESS. NO SOB ON 2LNC. VS STABLE. O2 SAT 98%. AWAKE, ALERT, ORIENTED X4. NO COMPLAINT OF CHEST PAIN. TELE REMOVED. DISCHARGE EDUCATION PROVIDED TO PT/DAUGHTER. INSTRUCTED TO FOLLOW UP PCP AT UPCOMING APPT. VERBALIZED UNDERSTANDING. IV REMOVED FROM RFA, CATHETER IN TACT. PRESSURE APPLIED. SITE WNL. BELONGINGS WITH PATIENT.
--- NOTE | 2018-06-05 07:53 | NUR ---
PHYSICAL THERAPY DAILY NOTES CO-SIGN All documentation done by the Staff Physical Therapist for 06/05/18 has been reviewed. I agree with the documentation. Reviewed/Co-Signed by: Laisha Dominguez PT Documentation Done by:DANIEL ENGLE PTA [place] CO-SIGNED FOR THE DATE 06/02/18
== END 2018-06-02 18:14 | disposition home health service (06) | DRG 291 ==
LOC: ED 20:31 → IC 21:58 → DU 21:58 → IC 23:54 → DU 05-24 15:53
PROVIDERS: Internal Medicine; Internal Medicine Nephrology; Specialist; ADMIT Internal Medicine
DX: I13.0 Hypertensive heart and chronic kidney disease with heart failure and stage 1 through stage 4 chronic kidney disease, or unspecified chronic kidney disease (principal); J18.9 Pneumonia, unspecified organism; N17.0 Acute kidney failure with tubular necrosis; J96.01 Acute respiratory failure with hypoxia; I50.43 Acute on chronic combined systolic (congestive) and diastolic (congestive) heart failure; J44.1 Chronic obstructive pulmonary disease with (acute) exacerbation; N18.4 Chronic kidney disease, stage 4 (severe); I11.0 Hypertensive heart disease with heart failure; E87.6 Hypokalemia; E83.42 Hypomagnesemia; I35.0 Nonrheumatic aortic (valve) stenosis; F29 Unspecified psychosis not due to a substance or known physiological condition; I27.20 Pulmonary hypertension, unspecified; I25.10 Atherosclerotic heart disease of native coronary artery without angina pectoris; I25.2 Old myocardial infarction; Z68.29 Body mass index [BMI] 29.0-29.9, adult
CPT/HCPCS: 36600; 82962; 83880; 84439; 87804; 92526-GN; 92610; 97112-GP; 97116-GP; 97530-GP; J0360; J1940; J1956; J2060; J2543; J2920; J2930; J3475; J3490; J7030; J7050; J7060; J7613; J7620; J7644; Q0092; Q0163